=== PATIENT | female | born 1960 | race Caucasian/White ===

== ENCOUNTER 2018-01-04 05:50 | Day surgery (SDC) | payer OTHER ==
[~2018-01-04 05:50] MED LIST: COZAAR25 MG; INVANZ1 GM IV; Intestinex CAP PO; LEVOTHYROXINE88 MCG PO; PANTOPRAZOLE SO40 MG PO
== END 2018-01-04 09:15 | disposition home or self-care (01) ==
LOC: AMB-ENDOS 05:50 → CIR.AMB 12:15
DX: D13.1 Benign neoplasm of stomach (principal); D13.2 Benign neoplasm of duodenum; K31.7 Polyp of stomach and duodenum

== ENCOUNTER 2020-12-18 08:25 | Emergency (ER) | payer OTHER ==
[~2020-12-18] VITALS: Ht 152.4 cm; Wt 62.6 kg
[2020-12-18] MEDS ORDERED: SYNTHROID75 MCG PO (08:32)
[2020-12-18] MEDS ORDERED: SIMVASTATIN20 MG PO (08:33)
[2020-12-18] MEDS ORDERED: CIPRO500 MG PO (15:43)
[2020-12-18] MEDS ORDERED: FLAGYL500MG PO (15:43)
[2020-12-18] MEDS ORDERED: PROTONIX40 MG PO (16:00)
== END 2020-12-18 18:30 | disposition home or self-care (01) ==
LOC: ER 08:25
DX: K57.92 Diverticulitis of intestine, part unspecified, without perforation or abscess without bleeding (principal)